=== PATIENT | female | born 1940 | race Caucasian/White ===

== ENCOUNTER → 2016-09-05 | Outpatient (CLI) | payer OTHER ==
[~2016-09-05] MED LIST: CYM/30 PO; LORA-741 PO; MULT-506 PO; TEMA30CA4 PO; TIZA2CAP PO
== END | disposition home or self-care (01) ==
LOC: C.LABMFLN 10:37
PROVIDERS: ATTEND Family Medicine
DX: R19.7 Diarrhea, unspecified (principal)

== ENCOUNTER → 2016-10-31 | Outpatient (CLI) | payer OTHER ==
[~2016-10-31] MED LIST changes: +CHOL1000 PO; -CYM/30 PO; +GABA-113 PO; +OXYC-57 PO; +PRLSR20 PO; +TRIA0.5O TOP
== END ==
LOC: C.PAIN 10:57
PROVIDERS: ATTEND Anesthesiology

== ENCOUNTER → 2017-01-12 | Outpatient (CLI) | payer OTHER ==
[2017-01-12 13:35] LABS: URINE APPEARANCE CLEAR (CLEAR); URINE BILIRUBIN NEG (NEG); URINE COLOR YELLOW; URINE EPITHELIAL CELL AUTO >30 /lpf (0-5); URINE NITRITE NEG (NEG); URINE PH 6.5 (4.5-7.5); URINE SPECIFIC GRAVITY 1.021 (1.000-1.030); UROBILINOGEN NEG (NEG)
[2017-01-12 13:56] LABS: MANUAL MICROSCOPIC REQUIRED? NO; REVIEW REQ? NO
== END | disposition home or self-care (01) ==
LOC: C.LABMFLN 11:18
PROVIDERS: ATTEND Family Medicine
DX: R31.29 Other microscopic hematuria (principal)

== ENCOUNTER → 2017-04-19 | Outpatient (CLI) | payer OTHER ==
[~2017-04-19] MED LIST changes: -CHOL1000 PO; -GABA-113 PO; -OXYC-57 PO; -PRLSR20 PO; -TRIA0.5O TOP
[2017-04-19 13:08] LABS: BASO % 0.4 %; BASO ABS # 0.03 K/uL (0-0.2); COMPLETE YES; EOS % 4.2 %; IG% 0.1 %; LYMPH % 25.6 %; LYMPH ABS # 1.82 K/uL (1.2-3.4); MEAN CELL VOLUME 90.7 fL (80-100); MEAN CORPUSCULAR HEMOGLOBIN 31.2 pg (25-34); MEAN CORPUSCULAR HGB CONC 34.4 g/dl (32-36); MEAN PLATELET VOLUME 10.6 fL (7.4-10.4); MONO % 9.2 %; NEUT % 60.5 %; PLATELET COUNT 265 K/uL (130-400); RED BLOOD COUNT 4.52 M/uL (4.2-5.4)
[2017-04-19 13:30] LABS: ALT/SGPT 25 U/L (12-78); AST/SGOT 30 U/L (15-37); BLOOD UREA NITROGEN 13 mg/dl (7-18); BUN/CREATININE RATIO 15.2 (10-20); CALCIUM 9.9 mg/dl (8.5-10.1); CARBON DIOXIDE 28 mmol/L (21-32); CHLORIDE 107 mmol/L (98-107); CHOLESTEROL 216 mg/dl (0-200); CREATININE 0.82 mg/dl (0.60-1.20); GLUCOSE 103 mg/dl (70-99); POTASSIUM 4.1 mmol/L (3.5-5.1); SODIUM 141 mmol/L (136-145); TRIGLYCERIDES 85 mg/dl (0-150); VERY LOW DENSITY LIPOPROT CALC 17 mg/dl
[2017-04-19 13:33] LABS: ALB/GLOB RATIO 1.3 (0.9-2); ALKALINE PHOSPHATASE 102 U/L (45-117); CHOLESTEROL/HDL RATIO 3.1; HDL CHOLESTEROL 70 mg/dl; LDL CHOLESTEROL CALCULATED 129 mg/dl
== END | disposition home or self-care (01) ==
LOC: C.LABMFLN 11:12
PROVIDERS: ATTEND Family Medicine
DX: I10 Essential (primary) hypertension (principal)

== ENCOUNTER 2017-06-13 07:51 | Day surgery (SDC) | payer OTHER ==
[2017-06-06 11:28] VITALS: BMI 22.0
--- NOTE | 2017-06-06 12:01 | PAT Medication Instructions ---
Service Date Jun 06, 2017. Current Home Medication List Cholecalciferol (Vitamin D3), 1 TAB PO QAM Gabapentin (Neurontin), 300 MG PO UD PRN for prn Lorazepam (Ativan), 0.5 MG PO TID PRN for Anxiety Multivitamin (Multivitamin), 1 TAB PO QAM Omeprazole (Prilosec), 20 MG PO QAM Temazepam (Restoril), 30 MG PO HS Tizanidine (Zanaflex), 2 MG PO TID Triamcinolone Acetonide (Topic (Triamcinolone Acetonide), Unknown Dose TOP UD Medication Instructions For Your Scheduled Surgery - Hold the following medications 24 hours prior to surgery: Triamcinolone Acetonide (Topic (Triamcinolone Acetonide), Unknown Dose TOP UD - Hold the following medications the morning of surgery: Cholecalciferol (Vitamin D3), 1 TAB PO QAM Multivitamin (Multivitamin), 1 TAB PO QAM - Take the following medications the morning of surgery with a sip of water OTHERWISE NOTHING TO EAT OR DRINK AFTER MIDNIGHT: Tizanidine (Zanaflex), 2 MG PO TID Omeprazole (Prilosec), 20 MG PO QAM Lorazepam (Ativan), 0.5 MG PO TID PRN for Anxiety Gabapentin (Neurontin), 300 MG PO UD PRN for prn (IF NEEDED) - Take the following medications as scheduled the night before surgery: Tizanidine (Zanaflex), 2 MG PO TID Temazepam (Restoril), 30 MG PO HS Lorazepam (Ativan), 0.5 MG PO TID PRN for Anxiety Gabapentin (Neurontin), 300 MG PO UD PRN for prn (IF NEEDED) If you have any questions please call us at [phone] or [phone] or [phone]
[2017-06-06 13:35] LABS: URINE APPEARANCE CLEAR (CLEAR); URINE BILIRUBIN NEG (NEG); URINE COLOR YELLOW; URINE NITRITE NEG (NEG); URINE SPECIFIC GRAVITY 1.012 (1.000-1.030); UROBILINOGEN NEG (NEG); ZZUR CULT IF INDIC CLEAN CATCH NO
[2017-06-06 13:40] LABS: MANUAL MICROSCOPIC REQUIRED? NO; REVIEW REQ? NO
[~2017-06-13] VITALS: Ht 167.6 cm; Wt 62.1 kg
[~2017-06-13 07:51] MED LIST changes: +CEFAZOLIN 1000MG IV PUSH 5 ML IV SCH; +CHOL1000 PO; +GABA-113 PO; +LACTATED RINGER'S 1000ML 1,000 ML IV SCH; +PRLSR20 PO; +TRIA0.5O TOP
[2017-06-13 08:15] VITALS: BP 170/74; PULSE 62; TEMP 36.5; O2SAT 95; Ht 167.6 cm; Wt 62.1 kg
[2017-06-13] MEDS ORDERED: EpHEDrine SULFATE INJ 50 MG/ML AMP IV PRN (08:30)
[2017-06-13] MEDS ORDERED: PHENYLEPHRINE 100MCG/ML 5ML SYR IV PRN (08:30)
[2017-06-13] MEDS ORDERED: HYDROmorphone INJ 2 MG/ML SYR/VIAL IV PRN (08:30)
[2017-06-13] MEDS ORDERED: ONDANSETRON INJ 2 MG/ML 2 ML VIAL IV PRN (08:30)
[2017-06-13] MEDS ORDERED: ATROPINE SULFATE 0.1 MG/ML 5ML SYR IV PRN (08:30)
--- NOTE | 2017-06-13 09:38 | History and Physical ---
History & Physical Date Jun 13, 2017. Chief Complaint Chronic back pain History of Present Illness The patient is a 76 year old female with complaints of chronic back pain Additional History Hepatic Disease: No Endocrine Disorder: No Kidney Disease: No Hypertension: No Heart Disease: No Bleeding Tendencies: No Infectious Diseases: No Allergies Coded Allergies: Ciprofloxacin (Unverified Allergy, Severe, face and throat swelling, 06/13) Home Medications Scheduled Cholecalciferol (Vitamin D3), 1 TAB PO QAM Omeprazole (Prilosec), 20 MG PO QAM Temazepam (Restoril), 30 MG PO HS Triamcinolone Acetonide (Topic (Triamcinolone Acetonide), Unknown Dose TOP UD Scheduled PRN Gabapentin (Neurontin), 300 MG PO UD PRN for prn Lorazepam (Ativan), 0.5 MG PO TID PRN for Anxiety Tizanidine (Zanaflex), 2 MG PO TID PRN for Muscle Spasms Physical Examination Skin: warm/dry, no rash Eyes: normal inspection, EOMI, sclerae normal ENT: normal ENT inspection, pharynx normal Head: normocephalic, atraumatic Neck: supple, no adenopathy, trachea midline Respiratory/Chest: lungs clear, normal breath sounds, no respiratory distress Cardiovascular: regular rate, rhythm, no edema, no murmur Abdomen / GI: normal bowel sounds, non tender Back: normal inspection Extremities: normal inspection, normal range of motion Neurologic/Psych: no motor/sensory deficits, alert, normal reflexes, oriented x 3 Diagnosis Chronic back pain Plan of Treatment Spinal cord stimulator removal
--- NOTE | 2017-06-13 09:38 | History & Physical Bridge Note ---
H&P Re-Evaluation Bridge Note: I have examined the patient, reviewed the History & Physical and in the interval since the performance of the History & Physical I have noted the following changes of clinical significance: No changes noted
[2017-06-13] MEDS ORDERED: FENTANYL CITRATE INJ 50 MCG/1 ML 2 ML VIAL ONE ×2 (09:49→10:50)
[2017-06-13] MEDS ORDERED: MIDAZOLAM HCL 1 MG/ML 2ML VIAL ONE (09:49)
[2017-06-13] MEDS ORDERED: BUPIVACAINE/EPINEPHRINE 0.5% MPF 1:200,000 30 ML VIAL ONE (09:59)
[2017-06-13] MEDS ORDERED: BACITRACIN 50000 UNIT VIAL ONE (09:59)
[2017-06-13] MEDS ORDERED: HYDROmorphone INJ 2 MG/ML SYR/VIAL ONE (10:50)
[2017-06-13] MEDS ORDERED: NEOSTIGMINE METHYLSULFATE 1 MG/ML 10ML VIAL ONE (10:52)
[2017-06-13] MEDS ORDERED: ROCURONIUM BROMIDE 10 MG/ML 5 ML VIAL IV ONE (10:52)
[2017-06-13] MEDS ORDERED: LIDOCAINE HCL 2% 2 ML VIAL (20MG/ML) ONE (10:52)
[2017-06-13] MEDS ORDERED: GLYCOPYRROLATE INJ 0.2 MG/ML VIAL ONE (10:52)
[2017-06-13] MEDS ORDERED: PROPOFOL IV EMULSION 10 MG/ML 20 ML VIAL IV ONE (10:52)
[2017-06-13] MEDS ORDERED: EpHEDrine SULFATE 50MG/5ML SYR ONE (10:52)
[2017-06-13] MEDS ORDERED: ONDANSETRON INJ 2 MG/ML 2 ML VIAL ONE (10:52)
[2017-06-13] MEDS ORDERED: DEXAMETHASONE SOD INJ 4 MG/ML VIAL ONE (10:52)
--- NOTE | 2017-06-13 11:14 | DIAGNOSTIC IMAGING REPORT ---
INTRAOPERATIVE LUMBAR SPINE 2 VIEWS CLINICAL HISTORY: SPINAL CORD STIMULATOR REMOVAL COMPARISON STUDY: No previous studies for comparison. FINDINGS: 4 seconds of fluoroscopic time was utilized. 2 intraoperative fluoroscopic spot images are provided for interpretation. The first image demonstrates a spinal cord stimulator with 2 leads. On the second image, spinal cord stimulator has apparently been removed. No leads are visualized. IMPRESSION: Fluoroscopic spot images demonstrating removal of spinal cord stimulator electrodes. Electronically signed by: Domingo Sommer M.D. 06/13/2017 11:13 AM Dictated Date/Time: 06/13/2017 11:12 AM
[2017-06-13] MEDS ORDERED: OXYC-57 PO (11:23)
--- NOTE | 2017-06-13 11:25 | Discharge Instructions ---
Discharge Instructions Date of Service Jun 13, 2017. Admission Reason for Admission: Thoracic Spine Pain Discharge Discharge Diagnosis / Problem: back pain Discharge Goals Goal(s): Decrease discomfort Activity Recommendations Activity Limitations: per Instructions/Follow-up section . Instructions / Follow-Up Instructions / Follow-Up ACTIVITY RECOMMENDATIONS: SELF CARE INSTRUCTIONS AFTER A LAMINECTOMY 1. No prolonged sitting (less than 30 minutes for the first 3 weeks after surgery). 2. No bending, lifting more than 5 pounds, or twisting (roll like a log when turning in bed). 3. You may shower 3 days after surgery if no drainage from wound. Thoroughly dry wound. Do not soak in the tub. 4. Please walk as much as you can for exercise. Gradually increase the distance that you walk as your endurance increases. 5. You may drive in 7-10 days if you are comfortable and no longer requiring pain medications. SPECIAL CARE INSTRUCTIONS: VERY IMPORTANT TO READ AND REVIEW A. Your surgical incision has been closed with a cosmetic suture under the skin that will dissolve in about 6 weeks. In 14 days, you can use a pair of clean scissors and cut the suture that is left outside of the skin at the ends of your incision. B. Complications are uncommon, but please contact us if you have any signs or symptoms of: 1. wound infection (fever higher than 102.5 degrees F, redness, separation of wound, drainage, or increasing pain from the incision) 2. blood clots in legs (pain, swelling, redness and warmth in legs) 3. urinary tract infection (fever higher than 102.5 degrees, burning upon urination or increased frequency of urination) 4. nerve problems (inability to walk on your toes or heels, numbness, loss of bowel or bladder control) 5. any other symptoms that concern you. C. Please call the office at if you have any concerns or questions about your operation or recovery. MANAGING PAIN AFTER SPINAL SURGERY 1. Narcotic medication is intended for short-term use and will be provided for surgical pain. Surgical pain usually lasts for a period of 4-6 weeks. Narcotic medication includes Percocet, Vicodin, Darvocet, Tylenol #3 or Lortab. 2. Longer-term pain is more appropriately treated with non-narcotic medication such as Tylenol ES. 3. Muscle spasm is not appropriately treated with narcotics. Muscle relaxers such as Soma, Flexeril or Skelaxin can be used along with Tylenol ES. 4. Remember that we all live with some "aches and pains". This is not unusual or uncommon after an injury or as we get older. 5. We will provide appropriate medication within the normal guidelines of their prescribed use. We will also be very cautious and aware of potential abuse and extended duration of patients' medication needs. 6. Please allow 2-3 days to process refills. Prescriptions will not be mailed but must be picked up at the office. FOLLOW UP VISIT: Keep your scheduled follow-up appointment. Any questions, please call the office at . Current Hospital Diet Patient's current hospital diet: Discharge Diet Recommended Diet: Regular Diet Procedures Procedures Performed: Spinal Cord Stimulator Removal Pending Studies Studies pending at discharge: no Laboratory Results Lipid Panel Test 04/19/17 11:15 Range/Units Triglycerides Level 85 0-150 mg/dl Cholesterol Level 216 H 0-200 mg/dl HDL Cholesterol 70 mg/dl Cholesterol/HDL Ratio 3.1 LDL Cholesterol, Calculated 129 mg/dl Medical Emergencies . Who to Call and When: Medical Emergencies: If at any time you feel your situation is an emergency, please call 911 immediately. . Non-Emergent Contact Non-Emergency issues call your: Primary Care Provider . "Provider Documentation" section prepared by Ant Bey. . VTE Core Measure Inpt VTE Proph given/why not?: Yoly Dan, [facility]
--- NOTE | 2017-06-13 11:28 | [facility] Operative Report ---
Operative Report Operative Date Jun 13, 2017. Pre-Operative Diagnosis Chronic Back Pain Post-Operative Diagnosis same as pre-operative Procedure(s) Performed #1 revision T10 laminotomy. #2 removal of spinal cord stimulator paddle and battery. Surgeon Dr. Ant Bey Estimated Blood Loss 10ml Findings None Specimens Specimen A: Explanted hardware spinal cord stimulator Description of Procedure Patient was met with preoperatively case discussed all questions were addressed. After informed consent was obtained patient was taken to the operative suite underwent intubation placed in a prone position the [place] table top Dilip frame. All bony prominences were well-padded eyes inspected to ensure there is no external bursitis upon. This point the thoracal lumbar spines prepped draped nostril fashion. Sharp dissection with the assistance of Bovie cautery was performed onto an exposing the previous laminotomy site at T10. Identified the spinal cord stimulator leads. I then performed a revision T10 laminotomy to safely remove the scar tissue overlying the paddle subcutaneous be removed without difficulty. After this was complete I exposed the right sided upper buttock area where the battery pocket was placed. Sharp dissection with the skin down to the pocket was performed. The battery was removed without difficulty. All lead wires were removed without difficulty. Incisions were then cut were then copious irrigated. I did place a 10 round JUDE drain in the battery pocket. Incisions were then closed with 1 Vicryl fascia 2- 0 Vicryl subcutaneous C 4 Monocryl for final skin closure Steri-Strips sterile dressings placed. Patient we can take PACU stable condition. I attest to the content of the Intraoperative Record and any orders documented therein. Any exceptions are noted below.
[2017-06-13] MEDS ORDERED: OXYCODONE/ACETAMINOPHEN 5-325 TAB PO PRN (11:30)
[2017-06-13] MEDS ORDERED: HYDROmorphone INJ 1 MG/ML SYR IV PRN (11:30)
[2017-06-13] MEDS ORDERED: ACETAMINOPHEN 325 MG TAB PO PRN (11:30)
--- NOTE | 2017-06-13 12:53 | Anesthesiology Progress Note ---
Anesthesia Post Op Note Date & Time Jun 13, 2017 at 12:53 Vital Signs Pain Intensity: 0 Vital Signs Past 12 Hours Date Time Temp Pulse Resp B/P (MAP) Pulse Ox O2 Delivery O2 Flow Rate FiO2 06/13/17 12:17 36.5 54 20 139/60 99 Room Air 06/13/17 12:00 36.2 56 20 168/57 98 Room Air 06/13/17 11:42 58 100 06/13/17 11:42 58 06/13/17 11:40 157/51 06/13/17 11:37 61 100 06/13/17 11:37 61 06/13/17 11:36 153/58 06/13/17 11:32 70 06/13/17 11:32 69 100 06/13/17 11:31 162/60 06/13/17 11:27 36.5 77 16 168/56 (77) 100 10 06/13/17 11:27 79 168/56 100 06/13/17 11:27 78 06/13/17 08:15 36.5 62 20 170/74 (106) 95 Room Air Notes Mental Status: alert / awake / arousable, participated in evaluation Pt Amnestic to Procedure: Yes Nausea / Vomiting: adequately controlled Pain: adequately controlled Airway Patency, RR, SpO2: stable & adequate BP & HR: stable & adequate Hydration State: stable & adequate Anesthetic Complications: no major complications apparent
[2017-06-13 13:15] VITALS: BP 190/78; PULSE 60; TEMP 36.4; O2SAT 96
== END 2017-06-13 13:20 | disposition home or self-care (01) ==
LOC: C.ACU 07:51
PROVIDERS: ATTEND Orthopaedic Surgery Orthopaedic Surgery of the Spine
DX: M54.9 Dorsalgia, unspecified (principal); G89.29 Other chronic pain; Z88.1 Allergy status to other antibiotic agents; F41.9 Anxiety disorder, unspecified; F32.9 Major depressive disorder, single episode, unspecified; M19.90 Unspecified osteoarthritis, unspecified site; Z85.828 Personal history of other malignant neoplasm of skin